=== PATIENT | female | born 1935 | race Two or more races ===

== ENCOUNTER → 2016-09-15 08:47 | Outpatient (CLI) | payer MEDICARE, OTHER ==
[2011-04-30 12:24] VITALS: BMI 29.6
== END ==
LOC: D.MAMMO 08:47
DX: Z12.31 Encounter for screening mammogram for malignant neoplasm of breast (principal)

== ENCOUNTER → 2017-10-05 08:00 | Outpatient (CLI) | payer MEDICARE ==
[2011-04-30 12:24] VITALS: BMI 29.6
== END | disposition home or self-care (01) ==
LOC: D.MAMMO 08:00
DX: Z12.31 Encounter for screening mammogram for malignant neoplasm of breast (principal)

== ENCOUNTER → 2020-07-06 08:50 | Outpatient (CLI) | payer OTHER ==
[2011-04-30 12:24] VITALS: BMI 29.6
== END | disposition home or self-care (01) ==
LOC: D.ECHO 08:50
PROVIDERS: ATTEND Family Medicine
DX: R60.0 Localized edema (principal); R10.9 Unspecified abdominal pain